=== PATIENT | male | born 1980 | race African-American/Black ===

== ENCOUNTER 2020-09-26 08:02 | Emergency (ER) | payer OTHER ==
[2020-09-26 08:07] VITALS: BP 117/75; PULSE 87; TEMP 97.8; BMI 25.8
[2020-09-26] MEDS ORDERED: IBUPROFEN 600 MG TABLET (FP) PO ONE ×2 (08:18)
== END 2020-09-26 08:33 | disposition home or self-care (01) ==
LOC: JERFT 08:02
DX: M79.642 Pain in left hand (principal)
CPT/HCPCS: 73130-TC-LT-FY; 99283-25

== ENCOUNTER 2021-07-25 19:02 | Emergency (ER) | payer OTHER ==
[2021-07-25 19:33] VITALS: BP 124/70; PULSE 96; TEMP 98.1; BMI 26.6
[2021-07-25] MEDS ORDERED: IBUPROFEN 600 MG TABLET (FP) PO ONE ×2 (20:35→20:56)
== END 2021-07-25 21:41 | disposition home or self-care (01) ==
LOC: JERFT 19:02
DX: M25.522 Pain in left elbow (principal)
CPT/HCPCS: 73070-TC-LT-FY; 99283-25

== ENCOUNTER 2021-11-13 11:25 | Emergency (ER) | payer OTHER ==
[2021-11-13 11:53] VITALS: BP 117/60; PULSE 74; RESP 17; TEMP 97.9; BMI 26.6
[2021-11-13] MEDS ORDERED: KETOROLAC TROMETHAMINE 30 MG/1 ML VIAL IM ONE (12:55)
[2021-11-13] MEDS ORDERED: KETOROLAC TROMETHAMINE 30 MG/1 ML VIAL ONE (12:59)
== END 2021-11-13 14:58 | disposition home or self-care (01) ==
LOC: JERFT 11:25
PROC: 3E0233Z Introduction of Anti-inflammatory into Muscle, Percutaneous Approach (ICD-10-PCS; principal; 2021-11-13)
DX: S90.412A Abrasion, left great toe, initial encounter (principal); W50.0XXA Accidental hit or strike by another person, initial encounter
CPT/HCPCS: 73562-TC-RT-FY; 73630-TC-LT; 99284-25

== ENCOUNTER → 2021-11-29 | Day surgery (SDC) | payer OTHER | END | disposition home or self-care (01) | LOC: JRADIR 08:57 | PROVIDERS: ATTEND Orthopaedic Surgery Sports Medicine | PROC: BQ27YZZ Computerized Tomography (CT Scan) of Right Knee using Other Contrast (ICD-10-PCS; principal; 2021-11-29) | DX: M25.561 Pain in right knee (principal) | CPT/HCPCS: 27369; 70130-TC-FY; 73700-TC-RT; 73701-TC-50-CT ==

== ENCOUNTER 2021-12-15 07:28 | Day surgery (SDC) | payer OTHER ==
[2021-12-12 13:27] VITALS: BMI 26.1
[2021-12-15] MEDS ORDERED: MIDAZOLAM HCL 2 MG/2 ML SINGLE DOSE VIAL ONE (09:04)
[2021-12-15] MEDS ORDERED: PROPOFOL 20 ML ONE (09:12)
[2021-12-15] MEDS ORDERED: ceFAZolin SODIUM 1 GM VIAL ONE (09:40)
[2021-12-15] MEDS ORDERED: DEXAMETHASONE SOD PHOSPHATE 4 MG/1 ML VIAL ONE (09:42)
[2021-12-15] MEDS ORDERED: ONDANSETRON 4 MG/2 ML VIAL ONE (09:42)
[2021-12-15] MEDS ORDERED: FENTANYL CITRATE/PF 50 MCG/ML VIAL ONE (10:46)
[2021-12-15] MEDS ORDERED: KETOROLAC TROMETHAMINE 30 MG/1 ML VIAL IVPUSH ONE (10:53)
[2021-12-15] MEDS ORDERED: oxyCODONE HCL 5 MG TABLET PO PRN (10:53)
[2021-12-15] MEDS ORDERED: ACETAMINOPHEN 1000 MG/100 ML BAG IVPB ONE (10:53)
[2021-12-15] MEDS ORDERED: ONDANSETRON 4 MG/2 ML VIAL IVPUSH PRN (10:53)
[2021-12-15] MEDS ORDERED: LACTATED RINGERS SOLUTION 1,000 ML IV SCH (11:00)
[2021-12-15] MEDS ORDERED: KETOROLAC TROMETHAMINE 30 MG/1 ML VIAL ONE (11:01)
[2021-12-15 11:16] VITALS: TEMP 98
[2021-12-15] MEDS ORDERED: ACETAMINOPHEN INJECTION 100 ML IVPB ONE (11:16)
[2021-12-15 11:19] VITALS: RESP 18
[2021-12-15 13:09] VITALS: PULSE 56
[2021-12-15 13:11] VITALS: BP 121/75
== END 2021-12-15 12:50 | disposition home or self-care (01) ==
LOC: FASU 07:28
PROVIDERS: ATTEND Orthopaedic Surgery Sports Medicine
PROC: 0SBC4ZZ Excision of Right Knee Joint, Percutaneous Endoscopic Approach (ICD-10-PCS; principal; 2021-12-15 09:00)
DX: S83.241A Other tear of medial meniscus, current injury, right knee, initial encounter (principal); M94.261 Chondromalacia, right knee; M65.9 Synovitis and tenosynovitis, unspecified
CPT/HCPCS: 94760

== ENCOUNTER 2022-02-13 22:27 | Emergency (ER) | payer OTHER ==
[2022-02-13 22:36] VITALS: BP 129/87; PULSE 89; RESP 18; TEMP 97.8; BMI 25.8
[2022-02-13] MEDS ORDERED: IBUPROFEN 600 MG TABLET (FP) PO ONE ×2 (22:37→22:38)
== END 2022-02-13 23:27 | disposition home or self-care (01) ==
LOC: FER 22:27
DX: S89.91XA Unspecified injury of right lower leg, initial encounter (principal); Y08.02XA Assault by strike by baseball bat, initial encounter
CPT/HCPCS: 73562-TC-RT-FY; 99283-25

== ENCOUNTER 2022-03-09 00:02 | Emergency (ER) | payer OTHER ==
[2022-03-09 00:07] VITALS: BP 119/73; PULSE 95; RESP 18; TEMP 98.7; BMI 27.7
== END 2022-03-09 00:40 | disposition home or self-care (01) ==
LOC: FER 00:02
DX: U07.1 COVID-19 (principal)
CPT/HCPCS: 0241U-QW; 99283-25

== ENCOUNTER 2022-03-27 09:26 | Emergency (ER) | payer OTHER ==
[2022-03-27 09:36] VITALS: BP 123/81; PULSE 81; RESP 20; TEMP 98.1; BMI 25.7
[2022-03-27] MEDS ORDERED: IBUPROFEN 600 MG TABLET (FP) PO ONE ×2 (09:36→09:49)
== END 2022-03-27 10:11 | disposition home or self-care (01) ==
LOC: FER 09:26
PROC: 0H9LXZZ Drainage of Left Lower Leg Skin, External Approach (ICD-10-PCS; principal; 2022-03-27)
DX: L03.116 Cellulitis of left lower limb (principal); L02.416 Cutaneous abscess of left lower limb
CPT/HCPCS: 99283-25

== ENCOUNTER 2023-05-07 16:00 | Emergency (ER) | payer OTHER ==
[2023-05-07 17:22] VITALS: BMI 25.1
[2023-05-07 17:38] VITALS: BP 138/81; PULSE 62; RESP 18; TEMP 99.2
[2023-05-07] MEDS ORDERED: ACETAMINOPHEN 500 MG TABLET (FP) ONE (17:41)
[2023-05-07] MEDS: ACETAMINOPHEN 500 MG TABLET (FP) PO ONE (17:44)
== END 2023-05-07 19:30 | disposition home or self-care (01) ==
LOC: FER 16:00
DX: S01.511A Laceration without foreign body of lip, initial encounter (principal); S09.90XA Unspecified injury of head, initial encounter; M54.2 Cervicalgia; M25.511 Pain in right shoulder; R51.9 Headache, unspecified; W01.198A Fall on same level from slipping, tripping and stumbling with subsequent striking against other object, initial encounter; Y04.0XXA Assault by unarmed brawl or fight, initial encounter
CPT/HCPCS: 70450-TC; 70486-TC; 72125-TC; 99284-25

== ENCOUNTER 2023-05-12 14:04 | Emergency (ER) | payer OTHER ==
[2023-05-12 14:11] VITALS: BP 126/80; PULSE 88; RESP 17; TEMP 98.7; BMI 25.1
== END 2023-05-12 15:08 | disposition home or self-care (01) ==
LOC: FER 14:04
DX: M25.511 Pain in right shoulder (principal); Y04.0XXD Assault by unarmed brawl or fight, subsequent encounter
CPT/HCPCS: 73000-TC-RT-FY; 73030-TC-RT-FY; 99283-25